=== PATIENT | male | born 1965 | race Caucasian/White ===

== ENCOUNTER 2018-03-21 01:26 | Emergency (ER) | payer BC ==
[2018-03-21 03:11] VITALS: BP 154/97
--- NOTE | 2018-03-21 03:11 | XRAY Report ---
Reason: ankle injury Procedure Date: 03/21/2018 Accession Number: [id number] / [id number] Procedure: XR - Ankle 3 View RT CPT Code: FULL RESULT: EXAM: RIGHT ANKLE RADIOGRAPHY EXAM DATE: 03/21/2018 03:05 AM. CLINICAL HISTORY: Pain after injury. COMPARISON: None. TECHNIQUE: 3 views. FINDINGS: Bones: Tiny chip fracture from the lateral aspect of the talus, distal to the lateral malleolus. No other acute fracture seen. Joints: No dislocation seen. Ankle mortise appears intact. No definite joint effusion. Soft Tissues: Soft tissue swelling. IMPRESSION: 1. Tiny chip fracture from the lateral aspect of the talus, distal to the lateral malleolus. 2. No other acute fracture or dislocation seen. RADIA
[2018-03-21] MEDS ORDERED: NAPROXEN 250 MG TABLET PO STA (03:18)
--- NOTE | 2018-03-21 03:23 | ED Physician Documentation ---
PD HPI LOWER EXT INJURY - Stated complaint Stated Complaint: FALL,R ANKLE PX - Chief complaint Chief Complaint: Ext Problem - History of Present Illness PD HPI LOW EXT INJURY LOCATION: Right, Ankle Type of injury: Fall, Twist Where injury occurred: Other () Timing - onset: Yesterday Timing - details: Abrupt onset Severity Comments: Moderate Improved by: Immobilization Worsened by: Moving Associated symptoms: No: Numbness, Tingling Similar symptoms before: Has not had sx before Recently seen: Not recently seen - Additional information Additional information: The patient denies injury to his torso or upper extremities. The patient reports pain with ambulation. The patient denies knee pain Review of Systems Constitutional: denies: Fever Eyes: denies: Loss of vision Ears: denies: Loss of hearing Throat: denies: Sore throat Cardiac: denies: Chest pain / pressure GI: denies: Abdominal Pain Musculoskeletal: reports: Joint pain, Extremity swelling. denies: Neck pain Neurologic: denies: Headache PD PAST MEDICAL HISTORY - Past Medical History Past Medical History: Yes Cardiovascular: Hypertension Respiratory: None Endocrine/Autoimmune: Type 2 diabetes GI: None : None Psych: Post traumatic stress disorder Musculoskeletal: Osteoarthritis Derm: None - Past Surgical History Past Surgical History: Yes General: Cholecystectomy Ortho: Knee replacement - Present Medications Home Medications: Ambulatory Orders Medication Instructions Recorded Confirmed Hydrocodone/Acetaminophen 1 each PO Q6H PRN #14 tablet 03/21/18 [Hydrocodon-Acetaminophen 5-325] - Allergies Allergies/Adverse Reactions: Allergies Allergy/AdvReac Type Severity Reaction Status Date / Time No Known Drug Allergies Allergy Verified 03/21/18 01:37 - Social History Does the pt smoke?: No Smoking Status: Never smoker Does the pt drink ETOH?: Yes ETOH Use: Beer, Liquor Does the pt have substance abuse?: No - Immunizations Immunizations are current?: Yes - POLST Patient has POLST: No PD ED PE NORMAL - General General: Alert and oriented X 3, No acute distress - HEENT HEENT: Atraumatic, PERRL, EOMI, Ears normal - Derm Derm: Normal color, No rash - Extremities Extremities: No deformity. No: No tenderness to palpate (The patient has tenderness to palpation of the right ankle with mild amount of swelling. There is no crepitus or obvious deformity or laceration. There is no proximal fibular head tenderness. The patient has full active range of motion of the hip and knee. The patient has no tenderness throughout the foot. The patient has normal cap refill and a normal dorsalis pedis pulse), Normal ROM s pain - Neuro Neuro: Alert and oriented X 3, Normal speech - Psych Psych: Normal affect Results - Vitals Vitals: Vital Signs - 24 hr 03/21/18 03/21/18 01:32 03:11 Temperature 36.5 C 36.6 C Heart Rate 93 86 Respiratory 16 12 Rate Blood Pressure 155/103 H 154/97 H O2 Saturation 97 98 Oxygen O2 Source Room air - Rads (name of study) Ankle Radiology: Final report received (IMPRESSION: 1. Tiny chip fracture from the lateral aspect of the talus, distal to the lateral malleolus. 2. No other acute fracture or dislocation seen. ) PD MEDICAL DECISION MAKING - ED course ED course: The patient was placed in a posterior splint and advised to be nonweightbearing. I recommended that the patient follow-up with orthopedics this week for further management of his acute fracture. The patient understands and agrees. I discussed warning signs and recommended returning to the emergency department immediately for worsening or any concerns. - Sepsis Event Vital Signs: Vital Signs - 24 hr 03/21/18 03/21/18 01:32 03:11 Temperature 36.5 C 36.6 C Heart Rate 93 86 Respiratory 16 12 Rate Blood Pressure 155/103 H 154/97 H O2 Saturation 97 98 Oxygen O2 Source Room air Departure - Departure Disposition: 01 Home, Self Care Clinical Impression: Talus fracture Qualifiers: Encounter type: initial encounter Fracture type: closed Talus location: unspecified portion of talus Fracture alignment: nondisplaced Laterality: unspecified laterality Qualified Code(s): S92.109A - Unspecified fracture of unspecified talus, initial encounter for closed fracture Condition: Good Instructions: Ankle Fx, ED Fx Ankle General Follow-Up: Diana Edouard MD [Provider Admit Priv/Credential] - (Call first thing on Thursday to schedule a follow-up appointment) Prescriptions: Hydrocodone/Acetaminophen [Hydrocodon-Acetaminophen 5-325] 1 each PO Q6H PRN #14 tablet PRN Reason: pain Comments: Please follow-up with orthopedics for further management of your fracture. You are to be nonweightbearing until you see orthopedics. Please return to the emergency department immediately for any worsening or any concerns.
== END 2018-03-21 04:12 | disposition home or self-care (01) ==
LOC: ED 01:26
DX: S92.154A Nondisplaced avulsion fracture (chip fracture) of right talus, initial encounter for closed fracture (principal); X50.1XXA Overexertion from prolonged static or awkward postures, initial encounter; Y93.89 Activity, other specified; Y92.480 Sidewalk as the place of occurrence of the external cause; I10 Essential (primary) hypertension; E11.9 Type 2 diabetes mellitus without complications
CPT/HCPCS: 29505; 73610; 99283; A9270